=== PATIENT | female | born 1945 | race Caucasian/White ===

== ENCOUNTER 2018-06-20 07:12 | Outpatient (CLI) | payer OTHER ==
[~2018-06-20 07:12] MED LIST: AMIODARONE HCL200 MG; CARDIZEM30 MG PO; COSOPT PF EYE1 EACH OP; ELIQUIS2.5 MG; SYNTHROID75 MCG PO; TUSSI PRES-B L120 M1; ZANTAC300 MG PO; ZOFRAN ODT4 MG SL
== END 2018-06-20 07:24 | disposition home or self-care (01) ==
LOC: SONOGRAMA 07:12 → MAMO-SONO 07:15 → SONOGRAMA 07:24
DX: E89.0 Postprocedural hypothyroidism (principal); E04.1 Nontoxic single thyroid nodule

== ENCOUNTER → 2019-04-16 | Outpatient (CLI) | payer OTHER | END | disposition home or self-care (01) | LOC: MAMO-SONO 04-10 07:15 → SONOGRAMA 08:13 | DX: E03.5 Myxedema coma (principal); E04.2 Nontoxic multinodular goiter ==

== ENCOUNTER 2020-08-25 10:24 | Outpatient (CLI) | payer OTHER | END 2020-08-25 10:43 | disposition home or self-care (01) | LOC: NUCLEAR 10:24 | PROVIDERS: ATTEND Orthopaedic Surgery | DX: M81.0 Age-related osteoporosis without current pathological fracture (principal) ==

== ENCOUNTER 2021-10-26 09:19 | Outpatient (CLI) | payer OTHER | END 2021-10-26 09:21 | disposition home or self-care (01) | LOC: NUCLEAR 09:19 | PROVIDERS: ATTEND Orthopaedic Surgery | DX: M81.0 Age-related osteoporosis without current pathological fracture (principal) ==

== ENCOUNTER 2022-12-30 08:21 | Outpatient (CLI) | payer OTHER | END 2022-12-30 08:27 | disposition home or self-care (01) | LOC: SONOGRAMA 08:21 | PROVIDERS: ATTEND Internal Medicine Endocrinology, Diabetes & Metabolism | DX: E04.1 Nontoxic single thyroid nodule (principal); E89.0 Postprocedural hypothyroidism; I49.9 Cardiac arrhythmia, unspecified; E55.9 Vitamin D deficiency, unspecified ==

== ENCOUNTER 2023-07-13 09:25 | Emergency (ER) | payer OTHER ==
[~2023-07-13] VITALS: Ht 167.6 cm; Wt 70.3 kg
[2023-07-13] MEDS ORDERED: METOPROLOL SUCC50 MG PO (09:39)
[2023-07-13] MEDS ORDERED: ELIQUIS5 MG PO (09:39)
[2023-07-13] MEDS ORDERED: PRAVASTATIN SOD20 MG PO (09:39)
[2023-07-13 11:38] LABS: HEMATOCRIT 41.7 % (36.0-45.00); HEMOGLOBIN 14.3 g/dL (12.0-15.00); MEAN CELL VOLUME 90.1 fL (80.00-100.00); MEAN CORPUSCULAR HEMOGLOBIN 30.9 pg (27.00-32.0); MEAN CORPUSCULAR HGB CONC 34.3 g/dl (32.0-36.0); PLATELET COUNT 255 K/uL (150-450); RED BLOOD COUNT 4.63 M/uL (4.00-6.00); RED CELL DISTRIBUTION WIDTH 14.3 % (11.5-14.5)
[2023-07-13 12:15] LABS: CALCIUM 9.2 mg/dL (8.5-10.1); CREATININE SERUM 0.75 mg/dL (0.55-1.02); GFR 74.73; POTASSIUM 4.6 mEq/L (3.5-5.1)
[2023-07-13 12:23] LABS: URINE APPEARANCE Clear; URINE BILIRRUBIN Negative (NEGATIVE); URINE BLOOD Negative; URINE COLOR Yellow; URINE GLUCOSE Negative (NEGATIVE); URINE LEUKOCYTE Trace; URINE NITRATE Negative; URINE PROTEIN Negative (NEGATIVE); URINE UROBILINOGEN 0.2 E.U./dl
[2023-07-13 12:29] LABS: URINE BACTERIA 85.6 uL (0.0-1933); URINE EPITHELIAL CELLS 8.3 uL (0.0-38.8); URINE WBC 9.8 uL (0.0-23.2)
[2023-07-13 12:40] LABS: URINE RBC 1.8 uL (0.0-20.8)
== END 2023-07-13 15:52 | disposition home or self-care (01) ==
LOC: ER 09:25
PROVIDERS: General Practice
DX: R10.9 Unspecified abdominal pain (principal); I11.0 Hypertensive heart disease with heart failure; I50.9 Heart failure, unspecified; K59.00 Constipation, unspecified; Z91.040 Latex allergy status

== ENCOUNTER 2023-09-27 09:07 | Emergency (ER) | payer OTHER ==
[~2023-09-27] VITALS: Ht 170.2 cm; Wt 114.3 kg
[~2023-09-27 09:07] MED LIST changes: +ELIQUIS5 MG PO; +METOPROLOL SUCC50 MG PO; +PRAVASTATIN SOD20 MG PO
== END 2023-09-27 14:24 | disposition home or self-care (01) ==
LOC: ER 09:07
DX: S09.8XXA Other specified injuries of head, initial encounter (principal); W19.XXXA Unspecified fall, initial encounter; Y93.89 Activity, other specified; Y92.89 Other specified places as the place of occurrence of the external cause; Y99.8 Other external cause status; I10 Essential (primary) hypertension; E03.8 Other specified hypothyroidism; Z91.040 Latex allergy status

== ENCOUNTER → 2023-09-30 09:36 | Outpatient (CLI) | payer OTHER ==
[2023-09-30 10:38] LABS: MEAN CELL VOLUME 90.4 fL (80.00-100.00); MEAN CORPUSCULAR HEMOGLOBIN 30.9 pg (27.00-32.0); MEAN CORPUSCULAR HGB CONC 34.2 g/dl (32.0-36.0); PLATELET COUNT 282 K/uL (150-450); RED BLOOD COUNT 4.21 M/uL (4.00-6.00); RED CELL DISTRIBUTION WIDTH 14.3 % (11.5-14.5)
[2023-09-30 10:59] LABS: INR 1.04; PARTIAL THROMBOPLASTIN TIME 30.5 SECONDS (22.0-34.0); PROTHROMBIN TIME 10.9 SECONDS (9.0-11.5)
[2023-09-30 11:07] LABS: ALBUMIN 3.7 gm/dL (3.4-5.0); BILIRUBIN TOTAL 0.54 mg/dL (0.3-1.2); CALCIUM 9.1 mg/dL (8.5-10.1); CREATININE SERUM 0.73 mg/dL (0.55-1.02); GFR 76.9; GLOBULINA 3.3 G/DL (2.4-3.5); MAGNESIUM 2.4 mg/dL (1.8-2.4); PHOSPHOROUS 3.8 mg/dL (2.5-4.9); POTASSIUM 4.84 mEq/L (3.5-5.1)
[2023-09-30 11:15] LABS: COL EPI 137 SECONDS (82-175)
[2023-10-01 16:08] LABS: CALCIUM IONIZED 4.9 mg/dL (4.5-5.6)
== END | disposition home or self-care (01) ==
LOC: LAB 09:36
PROVIDERS: ATTEND Orthopaedic Surgery
DX: D64.9 Anemia, unspecified (principal); D68.8 Other specified coagulation defects; E55.9 Vitamin D deficiency, unspecified; M85.9 Disorder of bone density and structure, unspecified; E56.1 Deficiency of vitamin K; E21.3 Hyperparathyroidism, unspecified; M81.8 Other osteoporosis without current pathological fracture; E88.89 Other specified metabolic disorders; Z91.040 Latex allergy status

== ENCOUNTER 2024-11-04 14:30 | Emergency (ER) | payer OTHER ==
[~2024-11-04] VITALS: Ht 170.2 cm; Wt 72.6 kg
[2024-11-04] MEDS ORDERED: ACETAMINOPHEN 500 MG GEL..CAP PO ONE ×2 (16:30→16:32)
== END 2024-11-04 19:44 ==
LOC: ER 14:30
DX: S70.01XA Contusion of right hip, initial encounter (principal); W18.39XA Other fall on same level, initial encounter; Y93.89 Activity, other specified; Y92.018 Other place in single-family (private) house as the place of occurrence of the external cause; Y99.9 Unspecified external cause status; E03.9 Hypothyroidism, unspecified; Z91.040 Latex allergy status; M85.88 Other specified disorders of bone density and structure, other site

== ENCOUNTER 2025-01-01 09:20 | Outpatient (CLI) | payer OTHER | END 2025-01-01 09:21 | disposition home or self-care (01) | LOC: NUCLEAR 09:20 | PROVIDERS: ATTEND Orthopaedic Surgery | DX: M81.0 Age-related osteoporosis without current pathological fracture (principal) ==

== ENCOUNTER 2025-01-01 10:05 | Outpatient (CLI) | payer OTHER | END 2025-01-01 10:10 | disposition home or self-care (01) | LOC: RAD 10:05 | PROVIDERS: ATTEND Orthopaedic Surgery | DX: M25.551 Pain in right hip (principal); M25.552 Pain in left hip ==

== ENCOUNTER → 2025-06-18 09:17 | Outpatient (CLI) | payer OTHER | END | disposition home or self-care (01) | LOC: NUCLEAR 09:17 | PROVIDERS: ATTEND Psychiatry & Neurology Clinical Neurophysiology | DX: G30.1 Alzheimer's disease with late onset (principal) | CPT/HCPCS: 78803; A9557 ==